=== PATIENT | female | born 1965 | race African-American/Black ===

== ENCOUNTER 2024-05-22 09:47 | Outpatient (CLI) | payer BC ==
[2024-05-22] MEDS ORDERED: Iopamidol 300 61% 100 ML VIAL FS ONE (09:52)
== END 2024-05-22 09:48 | disposition home or self-care (01) ==
LOC: CSHCT 09:47
PROVIDERS: ATTEND Ophthalmology
DX: H05.20 Unspecified exophthalmos (principal)
CPT/HCPCS: 70482; 82565